=== PATIENT | male | born 1980 | race Caucasian/White ===

== ENCOUNTER 2016-04-30 18:27 | Emergency (ER) | payer MEDICAID ==
[2016-04-30 18:50] VITALS: BP 125/81
[2016-04-30 19:48] LABS: CHLORIDE,CL 97 mmol/L (101-111); SODIUM,NA 133 mmol/L (135-145)
[2016-04-30] MEDS ORDERED: Cephalexin 500 MG Cap PO ONE (19:52)
[2016-04-30] MEDS ORDERED: Sulfamethoxazole/Trimethoprim 800-160 MG Tab PO ONE (19:52)
--- NOTE | 2016-04-30 20:17 | EDM.PDOC ---
ED HPI Trauma - General Chief Complaint: Lower Extremity Injury/Pain Stated Complaint: INFECTION IN LEG Time Seen by Provider: 04/30/16 19:15 Source: Reports: Patient History Limitations: Reports: No limitations - History of Present Illness INITIAL COMMENTS - FREE TEXT/NARRATIVE: c/o increased redness throbbing sensation and sores on left hernandez. Bumbed leg last week on something and had one open area Past 2 days more lesions and redness worsening today. No prior hx of skin infections. Remote hx IVDU. Pain/Injury Location: Reports: lower extremity, left Allergies/ADRs: Allergies No Known Allergies Allergy (Verified 04/30/16 18:52) Home Medications: Ambulatory Orders Baclofen [Baclofen] 10 mg PO BID 04/30/16 [Confirmed 04/30/16] Gabapentin [Neurontin] 600 mg PO TID 04/30/16 [Confirmed 04/30/16] Past Medical History - Past Health History Medical/Surgical History: Denies Medical/Surgical History Social & Family History - Tobacco Use Smoking Status *Q: Current Every Day Smoker Years of Tobacco use: 1 Packs/Tins Daily: 10 - Caffeine Use Caffeine Use: Reports: Coffee, Soda, Tea - Recreational Drug Use Recreational Drug Use: No Review of Systems - Review of Systems Review Of Systems: See Below Constitutional: Reports: no symptoms Eyes: Reports: no symptoms Ears: Reports: no symptoms Nose: Reports: no symptoms Mouth/Throat: Reports: no symptoms Respiratory: Reports: no symptoms Cardiovascular: Reports: no symptoms Musculoskeletal: Reports: leg pain (left anterior) Skin: Reports: wound (left lower leg), change in color (redness surrounding wound) Neurological: Reports: no symptoms Trauma Exam - Physical Exam Exam: See Below Exam Limited By: No limitations General Appearance: Reports: alert, mild distress Head: Reports: atraumatic, normocephalic Eyes: bilateral eye: EOMI Ears: Reports: normal external exam Nose: Reports: normal inspection Throat/Mouth: Reports: Normal inspection Neck: Reports: non-tender Respiratory Exam: Reports: no respiratory distress Cardiovascular: Reports: normal peripheral pulses Extremities: Reports: tenderness. 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 slight warmth to anterior leg. no streaking. ). Denies: Normal color Course - Vital Signs Last Recorded V/S: Last Vital Signs Temp 98.6 F 04/30/16 18:44 Pulse 99 04/30/16 18:44 Resp 17 04/30/16 18:44 BP 125/81 04/30/16 18:44 Pulse Ox 100 04/30/16 18:44 - Orders/Labs/Meds Orders: Active Orders 24 hr Category Date Time Status CULTURE WOUND [RM] Stat Lab 04/30/16 19:00 Received Labs: Laboratory Tests 04/30/16 04/30/16 04/30/16 Range/Units 19:18 19:18 19:18 WBC 8.9 (5.0-10.0) 10^3/uL RBC 5.08 (4.6-6.2) 10^6/uL Hgb 15.9 (14.0-18.0) g/dL Hct 45.9 (40.0-54.0) % MCV 90.4 (80-100) fL MCH 31.3 (27.0-34.0) pg MCHC 34.6 (33.0-35.0) g/dL Plt Count 196 (150-450) 10^3/uL Neut % (Auto) 70.4 (42.2-75.2) % Lymph % (Auto) 18.2 L (20.5-50.1) % [place] % (Auto) 10.1 H (2-8) % Eos % (Auto) 1.1 (1.0-3.0) % Baso % (Auto) 0.2 (0.0-1.0) % Sodium 133 L (135-145) mmol/L Potassium 4.3 (3.6-5.0) mmol/L Chloride 97 L (101-111) mmol/L Carbon Dioxide 30.0 (21.0-31.0) mmol/L Anion Gap 10.3 BUN 16 (7-18) mg/dL Creatinine 1.0 (0.6-1.3) mg/dL Est Cr Clr Drug Dosing 115.41 mL/min Estimated GFR (MDRD) > 60 BUN/Creatinine Ratio 16.00 Glucose 105 (74-105) mg/dL Lactic Acid 0.8 (0.5-2.2) mmol/L Calcium 9.5 (8.4-10.2) mg/dl Total Bilirubin 1.0 (0.2-1.0) mg/dL AST 36 (10-42) IU/L ALT 28 (10-60) IU/L Alkaline Phosphatase 80 (42-121) IU/L Total Protein 8.4 H (6.7-8.2) g/dl Albumin 4.4 (3.2-5.5) g/dl Globulin 4.0 Albumin/Globulin Ratio 1.10 Meds: Medications Discontinued Medications Generic Name Dose Route Start Last Admin Trade Name Vicky PRN Reason Stop Dose Admin Cephalexin 500 mg 04/30/16 19:52 04/30/16 19:57 Keflex PO 04/30/16 19:53 500 mg ONETIME ONE Administration Trimethoprim/Sulfamethoxazole 1 tab 04/30/16 19:52 04/30/16 19:57 Septra Ds PO 04/30/16 19:53 1 tab ONETIME ONE Administration Departure - Departure Time of Disposition: 20:12 Disposition: Home, Self-Care 01 Condition: fair Clinical Impression: Cellulitis, leg Qualifiers: Laterality: left Qualified Code(s): L03.116 - Cellulitis of left lower limb Instructions: Cellulitis, Adult Referrals: Daphnie Sparrow NP [Primary Care Provider] - Forms: ED Department Discharge Additional Instructions: Bactrim DS one twice daily for one week Keflex 500mg one three times daily for one week Keep area covered wash twice daily with antibacterial soap Clinic recheck on Thursday, sooner if fever, chills or increase in redness or swelling tylenol or ibuprofen for discomfort - My Orders Last 24 Hours: My Active Orders 04/30/16 19:00 CULTURE WOUND [RM] Stat - Assessment/Plan Last 24 Hours: My Active Orders 04/30/16 19:00 CULTURE WOUND [RM] Stat
== END 2016-04-30 20:24 | disposition home or self-care (01) ==
LOC: DL.ED 18:27
DX: L03.116 Cellulitis of left lower limb (principal); F17.210 Nicotine dependence, cigarettes, uncomplicated; Z79.899 Other long term (current) drug therapy
CPT/HCPCS: 36415; 80053; 83605; 85025; 87070; 99283; A9270; 87077

== ENCOUNTER 2016-09-09 18:05 | Emergency (ER) | payer MEDICAID ==
[2016-09-09 18:45] VITALS: BP 124/71
[2016-09-09] MEDS ORDERED: Lidocaine 1% 30 ML SDV INJECT ONE (18:58)
[2016-09-09] MEDS ORDERED: Bacitracin Oint 1 GM U/D Packet TOP ONE (18:59)
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
[2016-09-09] MEDS ORDERED: Cephalexin 500 MG Cap PO ONE (19:18)
[2016-09-09] MEDS ORDERED: Sulfamethoxazole/Trimethoprim 800-160 MG Tab PO ONE (19:18)
== END 2016-09-09 19:25 | disposition home or self-care (01) ==
LOC: DL.ED 18:05
DX: L03.114 Cellulitis of left upper limb (principal); F17.210 Nicotine dependence, cigarettes, uncomplicated
CPT/HCPCS: 10060; 87070; 99283; A9270

== ENCOUNTER 2018-08-04 21:01 | Emergency (ER) | payer MEDICAID ==
[2018-08-04] MEDS ORDERED: Acetaminophen/HYDROcodone 325-5 MG Tab PO ONE (21:02)
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
[2018-08-04 21:22] VITALS: BP 146/89; PULSE 92
[2018-08-04] MEDS ORDERED: Sodium Chloride 0.9% 10 ML Syringe FLUSH PRN (21:22)
[2018-08-04] MEDS ORDERED: HYDROmorphone 1 MG/ML Syringe IVPUSH ONE ×2 (21:22→23:08)
[2018-08-04 21:56] LABS: CHLORIDE,CL 104 mmol/L (101-111); SODIUM,NA 139 mmol/L (135-145)
[2018-08-04] MEDS ORDERED: Bacitracin Oint 1 GM U/D Packet TOP ONE (23:11)
[2018-08-04] MEDS ORDERED: Acetaminophen/HYDROcodone 325-5 MG Tab ONE (23:21)
== END 2018-08-04 23:33 | disposition home or self-care (01) ==
LOC: DL.ED 21:01
DX: S42.031A Displaced fracture of lateral end of right clavicle, initial encounter for closed fracture (principal); S00.81XA Abrasion of other part of head, initial encounter; Z79.899 Other long term (current) drug therapy; V19.9XXA Pedal cyclist (driver) (passenger) injured in unspecified traffic accident, initial encounter
CPT/HCPCS: 36415; 70450; 70486; 73030; 73060; 73090; 73130; 80053; 85025; 96374; 96376; 99284; J1170; A9270-GY

== ENCOUNTER 2020-09-05 16:20 | Emergency (ER) | payer MEDICAID ==
[2020-09-05 16:42] VITALS: BP 127/79; PULSE 100
== END 2020-09-05 17:27 | disposition left against medical advice (07) ==
LOC: DL.ED 16:20
DX: F41.0 Panic disorder [episodic paroxysmal anxiety] (principal); Z53.21 Procedure and treatment not carried out due to patient leaving prior to being seen by health care provider